=== PATIENT | female | born 2000 | race Caucasian/White ===

== ENCOUNTER 2023-05-21 10:05 | Inpatient (IN) | payer OTHER ==
[2023-05-21 11:08] VITALS: BMI 50.1
[2023-05-21] MEDS ORDERED: IBUPROFEN 400 MG TABLET (FP) PO PRN (11:43)
[2023-05-21] MEDS ORDERED: ONDANSETRON *ODT* 4 MG TABLET SL PRN (11:43)
[2023-05-21] MEDS ORDERED: BISMUTH SUBSALICYLATE 524 MG/30 ML PO PRN (11:43)
[2023-05-21] MEDS ORDERED: guaiFENesin 600 MG TABLET.ER (FP) PO PRN (11:43)
[2023-05-21] MEDS ORDERED: MAG HYDROX/AL HYDROX/SIMETH 30 ML UNIT-DOSE CUP PO PRN (11:43)
[2023-05-21] MEDS ORDERED: NALOXONE HCL (KLOXXADO) 8 MG SPRAY NS PRN (11:43)
[2023-05-21] MEDS ORDERED: NICOTINE POLACRILEX 2 MG GUM BC PRN (11:43)
[2023-05-21] MEDS ORDERED: LOPERAMIDE HCL 2 MG CAPSULE PO PRN (11:43)
[2023-05-21] MEDS ORDERED: BENZONATATE 200 MG CAPSULE PO PRN (11:43)
[2023-05-21] MEDS ORDERED: BENZOCAINE/MENTHOL (CHLORASEPTIC ) LOZENGE MM PRN (11:43)
[2023-05-21] MEDS ORDERED: POLYETHYLENE GLYCOL (HEALTHYLAX) 3350 17 GM PACKET PO PRN (11:43)
[2023-05-21] MEDS ORDERED: NALOXONE HCL 0.4 MG/ML VIAL IM PRN (11:43)
[2023-05-21] MEDS: diazePAM 5 MG TABLET PO PRN (12:40)
[2023-05-21] MEDS: MAGNESIUM HYDROX 2400MG/30ML ORAL SUSPENSION 30 ML CUP PO PRN (13:04)
[2023-05-21] MEDS: diazePAM 5 MG TABLET PO SCH (17:27)
[2023-05-21] MEDS: METHOCARBAMOL 500 MG TABLET PO PRN (17:29)
[2023-05-21] MEDS: THIAMINE 100 MG TABLET PO SCH (21:13)
[2023-05-21] MEDS: MELATONIN 5 MG TABLETS PO SCH (21:13)
[2023-05-22] MEDS: IBUPROFEN 600 MG TABLET (FP) PO PRN (05:51)
[2023-05-22] MEDS ORDERED: methaDONE HCL 10 MG TABLET PO SCH (06:00)
[2023-05-22] MEDS: NICOTINE 21 MG/24 HOURS TOPICAL PATCH TD SCH (09:34)
[2023-05-22] MEDS: PRENATAL VITAMINS W/ FOLIC ACID TABLET (FP) PO SCH (09:35)
[2023-05-22] MEDS: hydrOXYzine PAMOATE 25 MG CAPSULE (FP) PO PRN (09:40)
[2023-05-22 14:47] LABS: HEMATOCRIT 30.2 % (32.4-45.2); HEMOGLOBIN 10.2 GM/dL (10.7-15.3); MCH 29.4 pg (25.7-33.7); MCHC 33.9 g/dl (32.0-36.0); MEAN CELL VOLUME 86.6 fl (80-96); MEAN PLT VOLUME 8.3 fl (7.5-11.1); PLATELET COUNT 299 10^3/uL (134-434); RBC 3.48 M/mm3 (3.60-5.2); RDW 14.2 % (11.6-15.6)
[2023-05-22 15:07] LABS: POTASSIUM 4.1 mmol/L (3.5-5.1)
[2023-05-22 15:25] LABS: ALBUMIN 3.5 g/dl (3.4-5.0); BLOOD UREA NITROGEN 7.2 mg/dL (7-18)
[2023-05-22 15:27] LABS: CREATININE 0.8 mg/dL (0.55-1.3)
[2023-05-22 15:29] LABS: BILIRUBIN,TOTAL 0.2 mg/dL (0.2-1); TOT PROT 7.2 g/dl (6.4-8.2)
[2023-05-22] MEDS: ACETAMINOPHEN 325 MG TABLET (FP) PO PRN (17:17)
[2023-05-22] MEDS: DICYCLOMINE HCL 10 MG CAPSULE PO PRN (20:51)
[2023-05-23] MEDS: diazePAM 5 MG TABLET PO SCH (05:49)
[2023-05-23] MEDS: SUVOREXANT 10 MG TABLET PO PRN (22:08)
[2023-05-24] MEDS: diazePAM 5 MG TABLET PO SCH (05:54)
[2023-05-25] MEDS: diazePAM 5 MG TABLET PO ONE (06:05)
[2023-05-25 10:12] VITALS: RESP 17
[2023-05-25 13:28] VITALS: BP 137/92; PULSE 85; TEMP 96.9
== END 2023-05-25 14:10 | disposition other institution (70) | DRG 773 ==
LOC: YASAS 10:05 → Y6N 11:45
PROVIDERS: ADMIT Allergy & Immunology; ATTEND Surgery
PROC: HZ2ZZZZ Detoxification Services for Substance Abuse Treatment (ICD-10-PCS; principal; 2023-05-21)
DX: F13.230 Sedative, hypnotic or anxiolytic dependence with withdrawal, uncomplicated (principal); F11.20 Opioid dependence, uncomplicated; F17.210 Nicotine dependence, cigarettes, uncomplicated; F19.280 Other psychoactive substance dependence with psychoactive substance-induced anxiety disorder; F19.282 Other psychoactive substance dependence with psychoactive substance-induced sleep disorder; F31.9 Bipolar disorder, unspecified; F60.3 Borderline personality disorder; F43.10 Post-traumatic stress disorder, unspecified; F41.9 Anxiety disorder, unspecified; Z62.810 Personal history of physical and sexual abuse in childhood; Z63.8 Other specified problems related to primary support group
CPT/HCPCS: 36415; 80053; 80305; 80307; 81025; 83036; 85027; 86780; 87811; 93005; 93010

== ENCOUNTER 2023-05-25 14:20 | Inpatient (IN) | payer OTHER ==
[2023-05-25] MEDS ORDERED: BENZONATATE 200 MG CAPSULE PO PRN (14:54)
[2023-05-25] MEDS ORDERED: NALOXONE HCL (KLOXXADO) 8 MG SPRAY NS PRN (14:54)
[2023-05-25] MEDS ORDERED: IBUPROFEN 400 MG TABLET (FP) PO PRN (14:54)
[2023-05-25] MEDS ORDERED: NALOXONE HCL 0.4 MG/ML VIAL IM PRN (14:54)
[2023-05-25] MEDS ORDERED: LOPERAMIDE HCL 2 MG CAPSULE PO PRN (14:54)
[2023-05-25] MEDS ORDERED: BENZOCAINE/MENTHOL (CHLORASEPTIC ) LOZENGE MM PRN (14:54)
[2023-05-25] MEDS ORDERED: MAG HYDROX/AL HYDROX/SIMETH 30 ML UNIT-DOSE CUP PO PRN (14:54)
[2023-05-25] MEDS ORDERED: MAGNESIUM HYDROX 2400MG/30ML ORAL SUSPENSION 30 ML CUP PO PRN (14:54)
[2023-05-25] MEDS ORDERED: POLYETHYLENE GLYCOL (HEALTHYLAX) 3350 17 GM PACKET PO PRN (14:54)
[2023-05-25] MEDS ORDERED: guaiFENesin 600 MG TABLET.ER (FP) PO PRN (14:54)
[2023-05-25] MEDS ORDERED: IBUPROFEN 600 MG TABLET (FP) PO PRN (14:54)
[2023-05-25] MEDS: hydrOXYzine PAMOATE 25 MG CAPSULE (FP) PO PRN (16:54)
[2023-05-25] MEDS: NICOTINE POLACRILEX 4 MG GUM BUC PRN (16:58)
[2023-05-25] MEDS: THIAMINE 100 MG TABLET PO SCH (21:09)
[2023-05-25] MEDS: MELATONIN 5 MG TABLETS PO SCH (21:09)
[2023-05-25] MEDS: METHOCARBAMOL 500 MG TABLET PO SCH (21:09)
[2023-05-26] MEDS ORDERED: methaDONE HCL 10 MG TABLET PO SCH (06:00)
[2023-05-26] MEDS: PRENATAL VITAMINS W/ FOLIC ACID TABLET (FP) PO SCH (09:58)
[2023-05-26] MEDS: ARIPiprazole 5 MG TABLET PO SCH (09:58)
[2023-05-26 11:58] LABS: CHLORIDE 103 mmol/L (98-107); SODIUM 134 mmol/L (136-145)
[2023-05-26 12:04] LABS: ALBUMIN 3.2 g/dl (3.4-5.0); ANION GAP 3 mmol/L (4-13); BLOOD UREA NITROGEN 13.4 mg/dL (7-18); CALCIUM 8.7 mg/dL (8.5-10.1); CO2 29 mmol/L (21-32); GLUCOSE,RANDOM 125 mg/dL (74-106); HEMATOCRIT 36.9 % (32.4-45.2); HEMOGLOBIN 12.5 GM/dL (10.7-15.3); MCHC 33.9 g/dl (32.0-36.0); MEAN CELL VOLUME 85.6 fl (80-96); MEAN PLT VOLUME 7.8 fl (7.5-11.1); PLATELET COUNT 304 10^3/uL (134-434); RBC 4.32 M/mm3 (3.60-5.2); RDW 13.2 % (11.6-15.6); WHITE BLOOD COUNT 6.9 K/mm3 (4.0-10.0)
[2023-05-26 12:07] LABS: CREATININE 0.7 mg/dL (0.55-1.3); SGOT/AST 19 U/L (15-37); SGPT/ALT 34 U/L (13-61)
[2023-05-26 12:09] LABS: BILIRUBIN,TOTAL 0.4 mg/dL (0.2-1)
[2023-05-26 12:10] LABS: ALK PHOS 89 U/L (45-117)
[2023-05-27 15:51] LABS: PH,URINE 6.5 (5.0-8.0); URINE APPEARANCE CLEAR; URINE BILIRUBIN NEGATIVE (NEGATIVE); URINE COLOR YELLOW; URINE GLUCOSE (UA) NEGATIVE (NEGATIVE); URINE KETONE NEGATIVE (NEGATIVE); URINE LEUK ESTERASE NEGATIVE (NEGATIVE); URINE NITRITE NEGATIVE (NEGATIVE); URINE PROTEIN NEGATIVE (NEGATIVE); URINE UROBILINOGEN 0.2 mg/dL (0.2-1.0)
[2023-05-27] MEDS: ARIPiprazole 2 MG TABLET PO SCH (16:36)
[2023-05-28] MEDS: ACETAMINOPHEN 325 MG TABLET (FP) PO PRN (10:07)
[2023-05-29] MEDS: PANTOPRAZOLE 20 MG TABLET PO SCH (10:28)
[2023-05-29] MEDS: ONDANSETRON *ODT* 4 MG TABLET SL PRN (10:28)
[2023-05-31] MEDS ORDERED: ARIPiprazole 5 MG TABLET PO SCH (08:28)
[2023-05-31] MEDS: ARIPiprazole 5 MG TABLET PO SCH (09:51)
[2023-05-31] MEDS: hydrOXYzine PAMOATE 50 MG CAPSULE (FP) PO PRN (09:52)
[2023-05-31] MEDS: MELATONIN 5 MG TABLETS PO SCH (21:35)
[2023-06-05 07:19] VITALS: TEMP 97
[2023-06-05 11:08] VITALS: BP 138/72; PULSE 90; RESP 18
== END 2023-06-05 10:37 | disposition home or self-care (01) | DRG 772 ==
LOC: YASAS 14:20 → Y5N 14:21
PROVIDERS: ADMIT Allergy & Immunology; ATTEND Psychiatry & Neurology Pain Medicine
PROC: HZ42ZZZ Group Counseling for Substance Abuse Treatment, Cognitive-Behavioral (ICD-10-PCS; principal; 2023-05-25)
DX: F11.20 Opioid dependence, uncomplicated (principal); F13.20 Sedative, hypnotic or anxiolytic dependence, uncomplicated; F12.20 Cannabis dependence, uncomplicated; F17.210 Nicotine dependence, cigarettes, uncomplicated; F19.282 Other psychoactive substance dependence with psychoactive substance-induced sleep disorder; F31.9 Bipolar disorder, unspecified; F41.9 Anxiety disorder, unspecified; F60.3 Borderline personality disorder; F43.10 Post-traumatic stress disorder, unspecified
CPT/HCPCS: 36415; 80053; 80305; 80307; 81003; 85027; 86780; 93005; 93010; Q0162

== ENCOUNTER 2024-02-22 22:20 | Emergency (ER) | payer SELFPAY ==
[2024-02-22 22:31] VITALS: BP 119/76; PULSE 106; RESP 18; TEMP 99.3; BMI 36.6
[2024-02-22] MEDS: ACETAMINOPHEN 1000 MG/100 ML BAG IVPB ONE (23:46)
[2024-02-22 23:52] LABS: BASO % 0.3 % (0-2.0); EOS % 1.2 % (0-4.5); HEMATOCRIT 38.3 % (32.4-45.2); HEMOGLOBIN 12.5 GM/dL (10.7-15.3); LYMPH % 12.8 % (8-40); MCH 28.1 pg (25.7-33.7); MCHC 32.7 g/dl (32.0-36.0); MEAN CELL VOLUME 85.8 fl (80-96); MEAN PLT VOLUME 7.8 fl (7.5-11.1); MONO % 7.4 % (3.8-10.2); NEUT % 78.3 % (42.8-82.8); PLATELET COUNT 386 10^3/uL (134-434); RBC 4.47 M/mm3 (3.60-5.2); RDW 14.6 % (11.6-15.6); WHITE BLOOD COUNT 13.9 K/mm3 (4.0-10.0)
[2024-02-22 23:59] LABS: INR 1.22 (0.83-1.09); PROTHROMBIN TIME (PATIENT) 13.9 SEC (9.7-13.0)
[2024-02-23 00:01] LABS: ACTIVATED PTT 23.5 SECONDS (25.2-36.5)
[2024-02-23 00:17] LABS: POTASSIUM 4.2 mmol/L (3.5-5.1)
[2024-02-23 00:19] LABS: CALCIUM 8.9 mg/dL (8.5-10.1)
[2024-02-23 00:20] LABS: BLOOD UREA NITROGEN 9.6 mg/dL (7-18)
[2024-02-23 00:21] LABS: ALBUMIN 2.9 g/dl (3.4-5.0)
[2024-02-23 00:23] LABS: CREATININE 0.8 mg/dL (0.55-1.3)
[2024-02-23 00:24] LABS: BILIRUBIN,TOTAL 0.4 mg/dL (0.2-1); TOT PROT 7.8 g/dl (6.4-8.2)
== END 2024-02-22 23:58 | disposition left against medical advice (07) ==
LOC: JER 22:20
DX: L03.116 Cellulitis of left lower limb (principal); M25.472 Effusion, left ankle; R21 Rash and other nonspecific skin eruption
CPT/HCPCS: 36415; 73610-TC-LT-FY; 73630-TC-LT; 80053; 85025; 85610; 85651; 85730; 86140; 99285-25

== ENCOUNTER 2024-04-05 16:16 | Inpatient (IN) | payer OTHER ==
[2024-04-05] MEDS ORDERED: ACETAMINOPHEN INJECTION 100 ML ONE (18:11)
[2024-04-05] MEDS ORDERED: HYDROmorphone HCL CARPU-JECT 2 MG/1 ML DISP.SYRIN ONE (18:11)
[2024-04-05 18:16] LABS: HEMATOCRIT 36.8 % (32.4-45.2); HEMOGLOBIN 12.6 GM/dL (10.7-15.3); MCH 28.8 pg (25.7-33.7); MCHC 34.2 g/dl (32.0-36.0); MEAN CELL VOLUME 84.1 fl (80-96); MEAN PLT VOLUME 8.1 fl (7.5-11.1); PLATELET COUNT 259 10^3/uL (134-434); RBC 4.37 M/mm3 (3.60-5.2); RDW 17.8 % (11.6-15.6); WHITE BLOOD COUNT 21.4 K/mm3 (4.0-10.0)
[2024-04-05 18:17] LABS: VENOUS O2 SATURATION 84.9 % (70-80); VENOUS PCO2 37.9 mmHg (38-52); VENOUS PH 7.423 (7.310-7.410)
[2024-04-05] MEDS: HYDROmorphone HCl 2 MG/ML VIAL IVPUSH ONE (18:27)
[2024-04-05] MEDS: ACETAMINOPHEN 1000 MG/100 ML BAG IVPB ONE (18:27)
[2024-04-05] MEDS: SODIUM CHLORIDE 0.9% 500 ML INFUS.BAG IV ONE ×2 (18:27→22:24)
[2024-04-05] MEDS ORDERED: DIPHTH,PERTUSS(ACELL),TET 0.5 ML DISP.SYRIN IM ONE (18:28)
[2024-04-05] MEDS: DIPHTH,PERTUSS(ACELL),TET 0.5 ML DISP.SYRIN IM ONE (18:34)
[2024-04-05] MEDS: TETANUS AND DIPHTHERIA TOXOID 0.5 ML DISP.SYRIN IM ONE (18:36)
[2024-04-05 18:45] LABS: ANISOCYTOSIS 0; MACROCYTOSIS 0
[2024-04-05 18:48] LABS: POTASSIUM 3.8 mmol/L (3.5-5.1)
[2024-04-05 18:51] LABS: BLOOD UREA NITROGEN 10.2 mg/dL (7-18)
[2024-04-05 18:54] LABS: CREATININE 0.7 mg/dL (0.55-1.3)
[2024-04-05 18:55] LABS: TOT PROT 7.9 g/dl (6.4-8.2)
[2024-04-05] MEDS ORDERED: diazePAM CARPU-JECT 10 MG/2 ML DISP.SYRIN ONE (22:29)
[2024-04-05] MEDS ORDERED: MORPHINE SULFATE 2 MG/ML SYRINGE ONE (22:30)
[2024-04-05 22:34] LABS: INR 1.28 (0.83-1.09); PROTHROMBIN TIME (PATIENT) 13.9 SEC (9.7-13.0)
[2024-04-05] MEDS: diazePAM CARPU-JECT 10 MG/2 ML DISP.SYRIN IVPUSH ONE (22:35)
[2024-04-05] MEDS: morphine CARPU-JECT 2 MG/1 ML DISP.SYRIN IVPUSH ONE (22:35)
[2024-04-06] MEDS ORDERED: DOCUSATE SODIUM 100 MG CAPSULE (FP) PO PRN ×2 (01:37→16:08)
[2024-04-06] MEDS: SODIUM CHLORIDE 1,000 ML IV SCH ×2 (01:57→08:10)
[2024-04-06] MEDS: HYDROmorphone HCL CARPU-JECT 2 MG/1 ML DISP.SYRIN IVPB ONE (05:05)
[2024-04-06] MEDS: ACETAMINOPHEN 1000 MG/100 ML BAG IVPB ONE (05:05)
[2024-04-06] MEDS: AZITHROMYCIN 250 MG TABLET PO ONE (09:08)
[2024-04-06] MEDS: CEFTRIAXONE 1 G/50 ML PREMIX 50 ML IVPB SCH (09:08)
[2024-04-06] MEDS: methaDONE HCL 10 MG TABLET PO SCH (10:56)
[2024-04-06] MEDS: ACETAMINOPHEN 1000 MG/100 ML BAG IVPB SCH (10:57)
[2024-04-06] MEDS: LIDOCAINE 4% PATCH TP SCH (11:01)
[2024-04-06] MEDS: PIPERACILLIN/TAZOB 4.5 GM 4.5 GM/100 ML BAG IVPB SCH ×2 (11:18→21:32)
[2024-04-06] MEDS: VANCOMYCIN/WATER 2 GRAMS 2,000 MG/400 ML PIGGYBACK IVPB ONE (12:09)
[2024-04-06 12:48] LABS: ARTERIAL BLOOD GAS BASE EXCESS 1.9 mmol/L (-2-2); ARTERIAL BLOOD GAS PO2 67.4 mmHg (80-100); ARTERIAL BLOOD GAS pH 7.436 (7.350-7.450)
[2024-04-06 12:55] LABS: ALLENS TEST POSITIVE
[2024-04-06] MEDS: ALBUTEROL SO4 2.5/IPRATROPIUM 0.5 INH SOL 3 ML VIAL.NEB. NEB SCH (15:40)
[2024-04-06 16:03] LABS: HEMATOCRIT 37.8 % (32.4-45.2); HEMOGLOBIN 12.4 GM/dL (10.7-15.3); MCH 28.1 pg (25.7-33.7); MCHC 32.7 g/dl (32.0-36.0); MEAN PLT VOLUME 8.4 fl (7.5-11.1); PLATELET COUNT 323 10^3/uL (134-434); RBC 4.39 M/mm3 (3.60-5.2); RDW 18.1 % (11.6-15.6); WHITE BLOOD COUNT 19.5 K/mm3 (4.0-10.0)
[2024-04-06 16:11] LABS: POTASSIUM 4.4 mmol/L (3.5-5.1)
[2024-04-06 16:15] LABS: ALBUMIN 2.7 g/dl (3.4-5.0); BLOOD UREA NITROGEN 9.5 mg/dL (7-18); CALCIUM 8.9 mg/dL (8.5-10.1); MAGNESIUM 2.5 mg/dL (1.8-2.4)
[2024-04-06 16:18] LABS: CREATININE 0.7 mg/dL (0.55-1.3)
[2024-04-06 16:19] LABS: PHOSPHOROUS 2.9 mg/dL (2.5-4.9)
[2024-04-06 16:20] LABS: BILIRUBIN,TOTAL 1.1 mg/dL (0.2-1); TOT PROT 7.9 g/dl (6.4-8.2)
[2024-04-06] MEDS: PIPERACILLIN/TAZOB 4.5 GM 4.5 GM in DEXTROSE 5%-WATER 100 ML IVPB SCH (16:33)
[2024-04-06 17:11] LABS: ANISOCYTOSIS 0; MACROCYTOSIS 0
[2024-04-06 17:19] LABS: EPI CELLS >36 /uL (0-25.1); HYALINE CASTS 2 /uL (0-3.1); PH,URINE 5.5 (5.0-8.0); URINE APPEARANCE CLEAR; URINE BACTERIA 1251 /uL (0-1359); URINE BILIRUBIN NEGATIVE (NEGATIVE); URINE COLOR DK YELLOW; URINE GLUCOSE (UA) NEGATIVE (NEGATIVE); URINE KETONE NEGATIVE (NEGATIVE); URINE LEUK ESTERASE NEGATIVE (NEGATIVE); URINE NITRITE NEGATIVE (NEGATIVE); URINE PROTEIN 1+ (NEGATIVE)
[2024-04-06 17:20] LABS: URINE RBC 31.2 /uL (0-23.9)
[2024-04-06 17:21] LABS: URINE WBC 97.6 /uL (0-25.8)
[2024-04-06 17:28] LABS: COCAINE, UR POSITIVE (NEGATIVE); METHADONE, UR POSITIVE (NEGATIVE); OPIATES, URI POSITIVE (NEGATIVE); PHENCYCLIDINE,URINE NEGATIVE (NEGATIVE); URINE AMPHETAMINES NEGATIVE (NEGATIVE); URINE BARBITURATES NEGATIVE (NEGATIVE); URINE BENZODIAZEPINES NEGATIVE (NEGATIVE)
[2024-04-06 21:14] LABS: BILIRUBIN,DIRECT 0.2 mg/dL (0.0-0.2)
[2024-04-06] MEDS: LIDOCAINE PATCH REMOVAL MC SCH (21:32)
[2024-04-07] MEDS: ENOXAPARIN NA (PORCINE) 40 MG/0.4 ML DISP.SYRIN SQ SCH (10:11)
[2024-04-07] MEDS: BACITRACIN ZINC 15 GM TUBE TOPICAL OINTMENT TP SCH (10:11)
[2024-04-07 11:31] LABS: BASO % 0.2 % (0-2.0); EOS % 0.1 % (0-4.5); HEMOGLOBIN 10.9 GM/dL (10.7-15.3); LYMPH % 8.5 % (8-40); MCH 28.1 pg (25.7-33.7); MEAN CELL VOLUME 85.3 fl (80-96); MEAN PLT VOLUME 7.9 fl (7.5-11.1); MONO % 2.9 % (3.8-10.2); NEUT % 88.3 % (42.8-82.8); PLATELET COUNT 322 10^3/uL (134-434); RBC 3.87 M/mm3 (3.60-5.2); RDW 18.4 % (11.6-15.6); WHITE BLOOD COUNT 15.5 K/mm3 (4.0-10.0)
[2024-04-07] MEDS: VANCOMYCIN 1 GM PREMIX (F) 1 GM/200 ML BAG IVPB SCH (11:44)
[2024-04-07 12:16] LABS: POTASSIUM 3.5 mmol/L (3.5-5.1)
[2024-04-07 12:18] LABS: CALCIUM 8.1 mg/dL (8.5-10.1)
[2024-04-07 12:19] LABS: BLOOD UREA NITROGEN 10.4 mg/dL (7-18); MAGNESIUM 2.1 mg/dL (1.8-2.4)
[2024-04-07 12:22] LABS: CREATININE 0.5 mg/dL (0.55-1.3); PHOSPHOROUS 2.8 mg/dL (2.5-4.9)
[2024-04-07 12:23] LABS: BILIRUBIN,TOTAL 0.6 mg/dL (0.2-1); TOT PROT 6.4 g/dl (6.4-8.2)
[2024-04-07 12:24] LABS: ALBUMIN 2.1 g/dl (3.4-5.0)
[2024-04-07] MEDS: methylPREDNISolone NA SUCC 40 MG/1 ML VIAL IVPUSH SCH (17:05)
[2024-04-07] MEDS: ACETAMINOPHEN 500 MG TABLET (FP) PO SCH (17:51)
[2024-04-07] MEDS: KETOROLAC TROMETHAMINE 30 MG/1 ML VIAL IVPUSH SCH (17:51)
[2024-04-08] MEDS ORDERED: VANCOMYCIN 1 GM PREMIX (F) 1 GM/200 ML BAG IVPB SCH
[2024-04-08 08:01] LABS: HEMATOCRIT 32.3 % (32.4-45.2); MCHC 33.9 g/dl (32.0-36.0); MEAN CELL VOLUME 85.5 fl (80-96); MEAN PLT VOLUME 7.9 fl (7.5-11.1); PLATELET COUNT 366 10^3/uL (134-434); RBC 3.78 M/mm3 (3.60-5.2); WHITE BLOOD COUNT 16.1 K/mm3 (4.0-10.0)
[2024-04-08 08:14] LABS: BLOOD UREA NITROGEN 19.5 mg/dL (7-18); CALCIUM 8.7 mg/dL (8.5-10.1)
[2024-04-08 08:15] LABS: ALBUMIN 2.1 g/dl (3.4-5.0)
[2024-04-08 08:17] LABS: CREATININE 0.6 mg/dL (0.55-1.3)
[2024-04-08 08:19] LABS: BILIRUBIN,TOTAL 0.4 mg/dL (0.2-1); TOT PROT 7.1 g/dl (6.4-8.2)
[2024-04-08] MEDS: VANCOMYCIN HCL IN 5 % DEXTROSE 1,500 MG/300 ML BAG IVPB ONE (17:21)
[2024-04-09 07:22] LABS: HEMATOCRIT 30.9 % (32.4-45.2); HEMOGLOBIN 10.1 GM/dL (10.7-15.3); MCH 28.2 pg (25.7-33.7); MCHC 32.7 g/dl (32.0-36.0); MEAN CELL VOLUME 86.2 fl (80-96); MEAN PLT VOLUME 7.4 fl (7.5-11.1); PLATELET COUNT 403 10^3/uL (134-434); RBC 3.58 M/mm3 (3.60-5.2); RDW 18.4 % (11.6-15.6); WHITE BLOOD COUNT 14.3 K/mm3 (4.0-10.0)
[2024-04-09 07:42] LABS: POTASSIUM 3.7 mmol/L (3.5-5.1)
[2024-04-09 07:44] LABS: BLOOD UREA NITROGEN 29.9 mg/dL (7-18); CALCIUM 8.5 mg/dL (8.5-10.1)
[2024-04-09 07:48] LABS: CREATININE 0.7 mg/dL (0.55-1.3); PHOSPHOROUS 4.2 mg/dL (2.5-4.9)
[2024-04-09] MEDS: VANCOMYCIN 1 GM PREMIX (F) 1 GM/200 ML BAG IVPB SCH (14:55)
[2024-04-10 07:26] LABS: HEMATOCRIT 31.5 % (32.4-45.2); HEMOGLOBIN 10.3 GM/dL (10.7-15.3); MCH 28.4 pg (25.7-33.7); MCHC 32.6 g/dl (32.0-36.0); MEAN PLT VOLUME 7.2 fl (7.5-11.1); PLATELET COUNT 492 10^3/uL (134-434); RBC 3.62 M/mm3 (3.60-5.2); RDW 18.9 % (11.6-15.6); WHITE BLOOD COUNT 13.3 K/mm3 (4.0-10.0)
[2024-04-10 07:42] LABS: POTASSIUM 4.2 mmol/L (3.5-5.1)
[2024-04-10 07:47] LABS: CALCIUM 8.4 mg/dL (8.5-10.1)
[2024-04-10 07:48] LABS: BLOOD UREA NITROGEN 25.9 mg/dL (7-18); MAGNESIUM 3.1 mg/dL (1.8-2.4)
[2024-04-10 07:51] LABS: CREATININE 0.6 mg/dL (0.55-1.3); PHOSPHOROUS 3.1 mg/dL (2.5-4.9)
[2024-04-10 10:20] LABS: ANISOCYTOSIS 0; MACROCYTOSIS 0
[2024-04-10] MEDS: CEFTRIAXONE 1 G/50 ML PREMIX 50 ML IVPB SCH (17:27)
[2024-04-11] MEDS ORDERED: KETOROLAC TROMETHAMINE 30 MG/1 ML VIAL IVPUSH PRN (10:56)
[2024-04-11] MEDS: ACETAMINOPHEN 500 MG TABLET (FP) PO PRN (15:44)
[2024-04-12 23:59] VITALS: BMI 38.5
[2024-04-13 08:49] LABS: HEMOGLOBIN 10.8 GM/dL (10.7-15.3); MCH 28.7 pg (25.7-33.7); MCHC 33.6 g/dl (32.0-36.0); MEAN CELL VOLUME 85.3 fl (80-96); MEAN PLT VOLUME 6.4 fl (7.5-11.1); PLATELET COUNT 521 10^3/uL (134-434); RBC 3.76 M/mm3 (3.60-5.2); WHITE BLOOD COUNT 14.5 K/mm3 (4.0-10.0)
[2024-04-13 09:15] LABS: POTASSIUM 4.4 mmol/L (3.5-5.1)
[2024-04-13 09:17] LABS: BLOOD UREA NITROGEN 20.3 mg/dL (7-18); CALCIUM 8.9 mg/dL (8.5-10.1); MAGNESIUM 2.1 mg/dL (1.8-2.4)
[2024-04-13 09:21] LABS: CREATININE 0.5 mg/dL (0.55-1.3)
[2024-04-13 09:58] LABS: ANISOCYTOSIS 0; MACROCYTOSIS 0
[2024-04-13] MEDS: POLYETHYLENE GLYCOL (HEALTHYLAX) 3350 17 GM PACKET PO SCH (19:46)
[2024-04-14 07:38] LABS: BASO % 0.1 % (0-2.0); EOS % 0.1 % (0-4.5); HEMOGLOBIN 11.8 GM/dL (10.7-15.3); LYMPH % 19.3 % (8-40); MCH 28.5 pg (25.7-33.7); MCHC 32.8 g/dl (32.0-36.0); MEAN CELL VOLUME 86.8 fl (80-96); MEAN PLT VOLUME 6.7 fl (7.5-11.1); MONO % 7.1 % (3.8-10.2); NEUT % 73.4 % (42.8-82.8); PLATELET COUNT 532 10^3/uL (134-434); RBC 4.15 M/mm3 (3.60-5.2); RDW 17.6 % (11.6-15.6)
[2024-04-14 08:38] LABS: POTASSIUM 4.7 mmol/L (3.5-5.1)
[2024-04-14 08:39] LABS: CALCIUM 9.4 mg/dL (8.5-10.1)
[2024-04-14 08:43] LABS: CREATININE 0.6 mg/dL (0.55-1.3); PHOSPHOROUS 4.5 mg/dL (2.5-4.9)
[2024-04-14] MEDS: SODIUM CHLORIDE 1 GM TABLET PO SCH ×2 (11:28→22:27)
[2024-04-14] MEDS ORDERED: DOCUSATE SODIUM 100 MG CAPSULE (FP) PO PRN (14:53)
[2024-04-14] MEDS ORDERED: ACETAMINOPHEN 500 MG TABLET (FP) PO PRN (14:53)
[2024-04-14] MEDS: VANCOMYCIN 1 GM PREMIX (F) 1 GM/200 ML BAG IVPB SCH (15:36)
[2024-04-14 16:00] VITALS: RESP 18
[2024-04-14] MEDS ORDERED: LIDOCAINE PATCH REMOVAL MC SCH (22:00)
[2024-04-14] MEDS: LIDOCAINE PATCH REMOVAL MC SCH (22:28)
[2024-04-15] MEDS: methaDONE HCL 10 MG TABLET PO SCH (05:57)
[2024-04-15 07:57] LABS: HEMATOCRIT 35.6 % (32.4-45.2); HEMOGLOBIN 11.6 GM/dL (10.7-15.3); MCHC 32.4 g/dl (32.0-36.0); MEAN CELL VOLUME 86.3 fl (80-96); MEAN PLT VOLUME 6.8 fl (7.5-11.1); PLATELET COUNT 568 10^3/uL (134-434); RBC 4.13 M/mm3 (3.60-5.2); RDW 17.1 % (11.6-15.6); WHITE BLOOD COUNT 13.7 K/mm3 (4.0-10.0)
[2024-04-15 08:38] LABS: CALCIUM 9.4 mg/dL (8.5-10.1)
[2024-04-15 08:39] LABS: BLOOD UREA NITROGEN 18.5 mg/dL (7-18)
[2024-04-15 08:41] LABS: CREATININE 0.5 mg/dL (0.55-1.3)
[2024-04-15 08:43] LABS: BILIRUBIN,TOTAL 0.5 mg/dL (0.2-1); TOT PROT 8.1 g/dl (6.4-8.2)
[2024-04-15 08:55] LABS: ALBUMIN 2.7 g/dl (3.4-5.0)
[2024-04-15] MEDS: LIDOCAINE 4% PATCH TP SCH (11:39)
[2024-04-15] MEDS: predniSONE 20 MG TABLET (UD) PO SCH (11:39)
[2024-04-15] MEDS: ENOXAPARIN NA (PORCINE) 40 MG/0.4 ML DISP.SYRIN SQ SCH (11:40)
[2024-04-15] MEDS: POLYETHYLENE GLYCOL (HEALTHYLAX) 3350 17 GM PACKET PO SCH (11:40)
[2024-04-15] MEDS: BACITRACIN ZINC 15 GM TUBE TOPICAL OINTMENT TP SCH (11:41)
[2024-04-15] MEDS: CEFUROXIME AXETIL 500 MG TABLET PO ONE (12:07)
[2024-04-15] MEDS: CEFTRIAXONE 1 G/50 ML PREMIX 50 ML IVPB SCH (12:07)
[2024-04-15 14:15] VITALS: BP 116/73; PULSE 92; TEMP 98.4
== END 2024-04-15 15:56 | disposition home or self-care (01) | DRG 720 ==
LOC: JER 16:16 → JERBED 23:19 → J6S 04-06 03:46 → J2W 04-06 15:43 → J8W 04-14 12:29
PROVIDERS: ADMIT Internal Medicine; ATTEND Nurse Practitioner Family
DX: A41.89 Other specified sepsis (principal); J96.01 Acute respiratory failure with hypoxia; J18.9 Pneumonia, unspecified organism; E87.1 Hypo-osmolality and hyponatremia; F11.20 Opioid dependence, uncomplicated; F14.20 Cocaine dependence, uncomplicated; F17.210 Nicotine dependence, cigarettes, uncomplicated; F41.9 Anxiety disorder, unspecified; R07.81 Pleurodynia; F19.982 Other psychoactive substance use, unspecified with psychoactive substance-induced sleep disorder; G40.909 Epilepsy, unspecified, not intractable, without status epilepticus; F31.9 Bipolar disorder, unspecified; F90.9 Attention-deficit hyperactivity disorder, unspecified type; Z22.322 Carrier or suspected carrier of Methicillin resistant Staphylococcus aureus; Z59.00 Homelessness unspecified; Y04.8XXA Assault by other bodily force, initial encounter; Y93.9 Activity, unspecified; Y92.9 Unspecified place or not applicable; Y99.9 Unspecified external cause status
CPT/HCPCS: 0241U-QW; 36415; 36600; 71045-TC-FY; 71275-TC; 72128-TC; 72131-TC; 74177-TC; 80048; 80053; 80307; 81003; 82248; 82803; 82962; 83605; 83735; 84100; 84484; 84703; 85025; 85027; 85610; 85730; 86850; 86900; 86901; 87040; 87081; 87086; 90715; 93005; 93010; 93306-TC; 94010; 94640; 94761; 97116-GP; 97162-GP; 99285-25; G0480; J0131